=== PATIENT | male | born 1985 | race Caucasian/White ===

== ENCOUNTER 2017-01-28 11:24 | Emergency (ER) | payer SELFPAY | END 2017-01-28 13:40 | disposition home or self-care (01) | LOC: ER 11:24 | DX: M54.6 Pain in thoracic spine (principal); F17.210 Nicotine dependence, cigarettes, uncomplicated | CPT/HCPCS: 71250; 99283; 99283-25 ==

== ENCOUNTER 2017-02-16 20:39 | Emergency (ER) | payer OTHER ==
[2017-02-16 22:59] LABS: BASO % 0.2 % (0.2-1.2); EOS # 0.2 10_X3_uL (0.0-0.5); EOS % 1.7 % (0.8-7.0); GRAN # 7.3 10_X3_uL (1.8-5.4); GRAN % 63.3 % (34.0-67.9); HEMATOCRIT 44.2 % (40-51); HEMOGLOBIN 15.7 g/dL (13.7-17.5); LYMPH % 26.3 % (21.8-53.1); MEAN CORPUSCULAR HEMOGLOBIN 29.1 pg (27.0-33.0); MEAN CORPUSCULAR HGB CONC 35.5 g/dL (32.0-36.0); MEAN CORPUSCULAR VOLUME 81.9 fL (79-92); MEAN PLATELET VOLUME 9.2 fl (7.5-11.5); MONO % 8.5 % (5.3-12.2); PLATELET COUNT 279 x10_3/uL (163-337); RED CELL DISTRIBUTION WIDTH 13.9 % (11.6-14.4); WHITE BLOOD COUNT 11.5 x10_3/uL (4.2-9.1)
[2017-02-16 23:11] LABS: ALBUMIN 4.5 gm/dL (3.4-5.0); ALKALINE PHOSPHATASE 51 U/L (50-136); ALT/SGPT 31 U/L (7.53-40.17); AST/SGOT 18 U/L (6.66-35.34); BILIRUBIN,TOTAL 0.29 mg/dL (0.0-1.0); BLOOD UREA NITROGEN 13 mg/dL (7-18); CALCIUM 9.2 mg/dL (8.7-10.7); CARBON DIOXIDE 25 mmol/L (21-32); CREATININE 0.8 mg/dL (0.6-1.3); GLUCOSE,RANDOM 93 mg/dL (70-99); LIPASE 17 U/L (6.75-60.75); POTASSIUM 4.2 mmol/L (3.5-5.1); SODIUM 139 mmol/L (136-145); TOTAL PROTEIN 7.3 gm/dL (6.4-8.2)
== END 2017-02-17 00:55 | disposition home or self-care (01) ==
LOC: ER 20:39
PROVIDERS: Emergency Medicine
DX: A04.9 Bacterial intestinal infection, unspecified (principal); J06.9 Acute upper respiratory infection, unspecified; R11.10 Vomiting, unspecified; R19.7 Diarrhea, unspecified; K21.9 Gastro-esophageal reflux disease without esophagitis; F17.210 Nicotine dependence, cigarettes, uncomplicated
CPT/HCPCS: 36415; 80053; 83690; 85025; 99283; J8597